=== PATIENT | male | born 1980 | race Caucasian/White ===

== ENCOUNTER 2016-12-19 09:23 | Emergency (ER) | payer SELFPAY ==
[~2016-12-19] VITALS: Ht 162.6 cm; Wt 96.7 kg
[~2016-12-19 09:23] MED LIST: ACET-1256 PO; OXYC1TAB3 PO
[2016-12-19 09:30] VITALS: BP 148/88; PULSE 61; TEMP 37.2; O2SAT 96; Ht 162.6 cm; Wt 96.7 kg
--- NOTE | 2016-12-19 09:59 | EMERGENCY ROOM VISIT NOTE ---
History Report prepared by Stefano: Clair Richardson Under the Supervision of: Koby GoodwinO. First contact with patient: 09:41 Chief Complaint: OTHER COMPLAINT Stated Complaint: SWOLLEN LIPS, HIGH FEVER History of Present Illness The patient is a 36 year old male who presents to the Emergency Room with complaints of persistent lip swelling that began this morning. He currently rates his discomfort as a 9/10 in severity. The patient states that over the weekend he had a fever of 104 degrees Fahrenheit. He states that this morning he woke up with edema to his lips. The patient states that he has had cold sores in the past, but denies anything like this. He denies any other rashes. The patient notes a sore throat. He denies any swelling to his lower extremities. The patient states that the area started out itchy. He states that he is a smoker, but denies any alcohol use. The patient denies any history of Herpes. Source of History: patient Onset: this mroning Position: lip Symptom Intensity: 9/10 Quality: other (swelling, itchy) Timing: other (persistent) Associated Symptoms: + fevers, + sorethroat, No rash Review of Systems See HPI for pertinent positives & negatives. A total of 10 systems reviewed and were otherwise negative. Past Medical & Surgical Medical Problems: (1) Diabetes (2) Diabetes (3) Tobacco Use Disorder Surgical Problems: (1) No history of previous surgery Family History FH: cancer FH: diabetes mellitus Social History Smoking Status: Current Every Day Smoker Alcohol Use: none Housing Status: lives with family Occupation Status: employed Current/Historical Medications Scheduled Mupirocin (Bactroban 2% Oint), 1 APPLN EXT BID Valacyclovir Hcl (Valtrex), 2 TAB PO BID Allergies Coded Allergies: No Known Allergies (Unverified , 12/19/16) Physical Exam Vital Signs Date Time Temp Pulse Resp B/P Pulse Ox O2 Delivery O2 Flow Rate FiO2 12/19/16 09:30 37.2 61 20 148/88 96 Room Air Physical Exam GENERAL: Patient is awake, alert, somewhat anxious appearing, overall comfortable. EYES: The conjunctivae are clear. The pupils are round and reactive. EARS, NOSE, MOUTH AND THROAT: Mucous membranes are moist. Significant perioral swelling with vesicular eruption noted in the perioral region, mostly in the upper lip. NECK: The neck is nontender and supple. RESPIRATORY: Normal respiratory effort is noted there is no evidence of wheezing rhonchi or rales CARDIOVASCULAR: Regular rate and rhythm noted there no murmurs rubs or gallops normal S1 normal S2 GASTROINTESTINAL: The abdomen is soft. Bowel sounds are present in all quadrants. Abdomen is nontender MUSCULOSKELETAL/EXTREMITIES: There is no evidence of gross deformity full range of motion is noted in the hips and shoulders SKIN: There is no obvious evidence of any rash. There are no petechiae, pallor or cyanosis noted. NEUROLOGIC: Patient is awake alert and oriented x3. Medical Decision & Procedures Laboratory Results Test 12/19/16 09:50 Laboratory results per my review. Medications Administered Medications (Trade) Dose Ordered Sig/Brook Route Start Time Stop Time Status Last Admin Dose Admin Valacyclovir HCl (Valtrex Tab) 1,000 mg NOW ONCE PO 12/19/16 10:00 12/19/16 10:01 DC 12/19/16 09:58 1,000 MG ED Course 0946: The patient was evaluated in room B5. A complete history and physical examination were performed. 1000: Ordered Valtrex Tab 1000 mg PO. 1016: I reevaluated the patient and he is resting comfortably. I discussed the exam findings with him and I discussed the treatment plan. He verbalized complete understanding and agreement. He is ready to go home. Medical Decision Differential diagnosis: Etiologies such as contact dermatitis, viral exanthem, urticaria, allergic reaction, Ardon-Ricardo syndrome, toxic epidermal necrolysis, erythema multiforme, cellulitis, scabies, HSV, varicella, zoster, eczema, staph scalded skin syndrome, fungal infection, as well as others were entertained. Nursing notes reviewed. The patient is a 36-year-old male who presented to the emergency department for an evaluation of her pain and rash and swelling. The patient had a history of cold sores in the past. His significant other presented to the emergency Department with him. Neither the patient or his significant other have any other lesions anywhere including on the genitals. The patient was treated with Valtrex in the emergency department. Cultures were obtained of the rash. It does appear to be consistent with herpes labialis. The patient was encouraged to continue all medications as prescribed. He was also encouraged to drink plenty clear liquids. He was also encouraged return to the emergency Department immediately if symptoms change worsen or the need arises otherwise he was encouraged to follow-up with his primary care physician and avoid handling any food. Impression Primary Impression: Herpes labialis Scribe Attestation The scribe's documentation has been prepared under my direction and personally reviewed by me in its entirety. I confirm that the note above accurately reflects all work, treatment, procedures, and medical decision making performed by me. Departure Information Dispostion Home / Self-Care Prescriptions Mupirocin (Bactroban 2% Oint) 66 Appln/22 Gm Oint 1 APPLN EXT BID, #30 GM Prov: Vince Singh, DO 12/19/16 Valacyclovir Hcl (VALTREX) 1 Gm Tab 2 TAB PO BID, #12 TAB Prov: Vince Singh, DO 12/19/16 Referrals No Doctor, Assigned (PCP) Forms HOME CARE DOCUMENTATION FORM, IMPORTANT VISIT INFORMATION, WORK / SCHOOL INSTRUCTIONS, Work Instructions Patient Instructions My [facility], Sores Cold Additional Instructions Call your family to schedule a follow-up appointment. Continue all medications as prescribed. Avoid any direct contact with food or preparing food. Wash your hands frequently.
[2016-12-19] MEDS ORDERED: BCTROWC EXT (10:02)
[2016-12-19] MEDS ORDERED: VALA1TAB31 PO (10:02)
[2016-12-21 14:38] LABS: HERPES SIMPLEX CULT SOURCE OTHER-PERIORAL; HERPES SIMPLEX VIRUS CULT ISOLATED (NOT ISOLATED)
--- NOTE | 2016-12-21 17:58 | Pharmacy Progress Note ---
ED Pharmacist Culture FollowUp Date of Service: Dec 21, 2016. Patient called earlier today requesting results of HSV testing - was still pending at that point. He provided different phone number for contact [phone]. Serology updated later today - perioral positive for HSV by [facility]. 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 Tried to call [facility] for additional information, but only was able to contact automated services and was unable to speak with a person. Called Stefano at above number. Notified of positive HSV result. Counseled to continue the Valtrex and to follow-up with outpatient provider. Stefano acknowledged understanding. Case discussed with Dr. Singh.
== END 2016-12-19 10:26 | disposition home or self-care (01) ==
LOC: C.EDB 09:24
DX: B00.1 Herpesviral vesicular dermatitis (principal); F17.210 Nicotine dependence, cigarettes, uncomplicated; E11.9 Type 2 diabetes mellitus without complications; Z83.3 Family history of diabetes mellitus

== ENCOUNTER 2017-07-14 08:00 | Emergency (ER) | payer SELFPAY ==
[~2017-07-14] VITALS: Ht 162.6 cm; Wt 94.4 kg
[~2017-07-14 08:00] MED LIST changes: -ACET-1256 PO; +BCTROWC EXT; -OXYC1TAB3 PO; +VALA1TAB31 PO
[2017-07-14 08:04] VITALS: BP 138/86; PULSE 93; TEMP 36.9; O2SAT 97; Ht 162.6 cm; Wt 94.4 kg
--- NOTE | 2017-07-14 08:21 | EMERGENCY ROOM VISIT NOTE ---
History Report prepared by Stefano: Joe Novak Under the Supervision of: Dr. Cory Song M.D. First contact with patient: 08:11 Chief Complaint: OTHER COMPLAINT Stated Complaint: POSSIBLE PINK EYE, ALL KIDS AT HOME HAVE IT History of Present Illness The patient is a 37 year old male who presents to the Emergency Room with complaints of possible pink eye in his left eye that began this morning. He states that his eye is not painful, but it is itchy. When he woke up this morning, he states that his left eye lids were stuck together. He states that 3 of his kids at home have pink eye, and he thinks that that is what he is experiencing. He does not wear contacts or glasses. He denies any fever, cough, rhinorrhea, sore throat, or any other abnormal symptoms. His vaccinations are up to date. He denies any past medical problems. He denies any trauma or possibility for foreign body. Source of History: patient Onset: this morning Position: eye (left) Symptom Intensity: moderate Quality: other (Itching) Timing: constant Associated Symptoms: No fevers, No sorethroat, No cough Note: He denies any other abnormal complaints. Review of Systems See HPI for pertinent positives & negatives. A total of 10 systems reviewed and were otherwise negative. Past Medical & Surgical Medical Problems: (1) Diabetes (2) Diabetes (3) Tobacco Use Disorder Surgical Problems: (1) No history of previous surgery Old medical records were reviewed. Nurse's notes were reviewed and I agree with. Denies significant past medical history Family History FH: cancer FH: diabetes mellitus Social History Smoking Status: Current Every Day Smoker Alcohol Use: none Drug Use: none Marital Status: Housing Status: lives with family Occupation Status: employed Current/Historical Medications No Active Prescriptions or Reported Meds Allergies Coded Allergies: No Known Allergies (Unverified , 07/14/17) Physical Exam Vital Signs Date Time Temp Pulse Resp B/P (MAP) Pulse Ox O2 Delivery O2 Flow Rate FiO2 07/14/17 08:04 36.9 93 18 138/86 97 Room Air Physical Exam General: Non ill appearing, young male, well developed well nourished in no acute distress, breathing comfortably on room air. Normal speech HEENT: Normal cephalic atraumatic. Left eye is mildly red. Clear discharge. Minimal swelling of left lids. No proptosis. Stained with fluorescein. No lesions to the cornea appreciated. Pupils are equal round and reactive to light. Extraocular movements are intact. Oropharynx is pink with moist mucous membranes. No swelling of the mouth lips or tongue. Neck: Supple with a midline trachea. No meningeal signs or stiffness, no JVD or bruits. No Stridor. Chest: Clear to auscultation bilaterally. No wheezes or rhonchi. No increased work of breathing. Heart: regular rate and rhythm. Abdomen: Soft nontender, nondistended without rebound guarding or rigidity. Extremities: No cyanosis clubbing or edema. No calf tenderness or assymetry Spine/Back. Non tender to palpation. No CVA tenderness Skin: Good turgor without rashes. Neurologic exam: Cranial nerves two through 12 are intact. Motor and sensation are intact and symmetrical throughout. Medical Decision & Procedures Medications Administered Medications (Trade) Dose Ordered Sig/Brook Route Start Time Stop Time Status Last Admin Dose Admin Ciprofloxacin HCl (Ciloxan 0.3% Op Oint) 1 appln NOW ONCE OP 07/14/17 08:30 07/14/17 08:31 DC 07/14/17 08:26 1 APPLN ED Course 0811: Past medical records reviewed. The patient was evaluated in room B12B, and a complete history and physical examination were performed. 0830: Ordered Ciprofloxacin HCl 1 appln OP 0835: Upon reevaluation, the patient is resting. I discussed the results and treatment plan with him. He verbalized agreement of the treatment plan. The patient was discharged home. Medical Decision Differentials include, but are not limited to; conjunctivitis, foreign body, and infection. This patient comes in as described above. He has pink eye. His kids also have this. He is asymptomatic otherwise. His conjunctiva is mildly injected he has some clear drainage. He has normal-appearing pupil. I stained his eye with fluorescein and there is no significant coronary lesions or any dendritic lesions. He has 20/20 vision bilaterally. I will put him on Ciloxan eyedrops 1 drop 3 times a day. He is to use warm compresses ensure good handwashing return if: Worsening of symptoms, change in vision, increasing pain or problems , any new problems or concerns. The patient was happy with the plan and he was discharged to home. He should follow-up with her doctor this week for recheck. Medication Reconcilliation Current Medication List: was personally reviewed by me Blood Pressure Screening Patient's blood pressure: Normal blood pressure Blood pressure disposition: Did not require urgent referral Impression Primary Impression: Conjunctivitis, left eye Scribe Attestation The scribe's documentation has been prepared under my direction and personally reviewed by me in its entirety. I confirm that the note above accurately reflects all work, treatment, procedures, and medical decision making performed by me. Departure Information Dispostion Home / Self-Care Prescriptions No Active Prescriptions or Reported Meds Referrals No Doctor, Assigned (PCP) Forms HOME CARE DOCUMENTATION FORM, IMPORTANT VISIT INFORMATION, WORK / SCHOOL INSTRUCTIONS Patient Instructions My [facility] Additional Instructions Warm compresses. Use Ciloxan 1 drop 3 times a day to left eye Return if: Worsening of symptoms, increasing pain or swelling, change in vision , failure of symptoms resolve in 1-2 days Follow up with your doctor Sunday for recheck if not 100% better
[2017-07-14] MEDS ORDERED: CIPROFLOXACIN HCL 3.5 GM TUBE OP ONE (08:30)
== END 2017-07-14 08:37 | disposition home or self-care (01) ==
LOC: C.EDB 08:01
DX: H10.9 Unspecified conjunctivitis (principal); E11.9 Type 2 diabetes mellitus without complications; F17.210 Nicotine dependence, cigarettes, uncomplicated; Z80.9 Family history of malignant neoplasm, unspecified; Z83.3 Family history of diabetes mellitus

== ENCOUNTER 2017-09-22 09:34 | Emergency (ER) | payer SELFPAY ==
[~2017-09-22] VITALS: Ht 165.1 cm; Wt 95.1 kg
[2017-09-22 09:39] VITALS: TEMP 37; Ht 165.1 cm; Wt 95.1 kg
[2017-09-22] MEDS ORDERED: GUAI1TAB69 PO (09:47)
--- NOTE | 2017-09-22 09:54 | EMERGENCY ROOM VISIT NOTE ---
History Report prepared by Stefaon: Salomón Freeman Under the Supervision of: Dr. Cory Song M.D. First contact with patient: 09:45 Chief Complaint: CONGESTION Stated Complaint: BLISTERS,COUGH,COLD,SINUS INFECTION Nursing Triage Summary: fever for a few days with blisters all over his lips and sinus pressure, pain 8/10. Pt also c/o yellow productive cough. History of Present Illness The patient is a 37 year old male who presents to the Emergency Room with complaints of constant flu like symptoms beginning a week ago. The patient states that his symptoms have been constant for the past week and he complains of a fever, productive cough, runny nose, body aches, and mouth blisters. He notes that his fever reached a high of 102.7 two days ago and that he produces a greenish-yellow substance when he coughs. He reports that the blisters in his mouth have started very quickly. He denies any nausea, vomiting, and abdominal pain. The patient states that his entire family has recently been sick. He notes that he is up to date on his vaccinations but has not received a flu shot this year. Source of History: patient Onset: a week ago Position: other (global) Quality: other (fly like symptoms) Timing: constant Associated Symptoms: + fevers (102.7), + cough (greenish-yellow productive) , No nausea, No vomiting, No abdominal pain Note: He also complains of a runny nose, body aches, and mouth blisters. Review of Systems See HPI for pertinent positives & negatives. A total of 10 systems reviewed and were otherwise negative. Past Medical & Surgical Medical Problems: (1) Diabetes (2) Diabetes (3) Tobacco Use Disorder Surgical Problems: (1) No history of previous surgery Old medical records were reviewed. Nurse's notes were reviewed and I agree with. History of HSV Family History FH: cancer FH: diabetes mellitus Social History Smoking Status: Current Every Day Smoker Alcohol Use: none Drug Use: none Marital Status: Housing Status: lives with family Occupation Status: employed Current/Historical Medications Scheduled Azithromycin (Zithromax Z-Mode), 0 PO UD Mupirocin (Bactroban 2% Oint), 1 APPLN EXT BID Valacyclovir Hcl (Valtrex), 1 TAB PO BID Scheduled PRN Guaifenesin (Mucinex Maximum Strength), 1 TAB PO BID PRN for congestion Allergies Coded Allergies: No Known Allergies (Unverified , 09/22/17) Physical Exam Vital Signs Date Time Temp Pulse Resp B/P (MAP) Pulse Ox O2 Delivery O2 Flow Rate FiO2 09/22/17 11:15 92 16 135/87 100 09/22/17 09:39 97 Room Air 09/22/17 09:39 37.0 104 18 113/72 96 Room Air Physical Exam General: Non-ill appearing 37 year old male in no acute distress. Occasional dry cough. HEENT: Normal cephalic atraumatic. Pupils are equal round and reactive to light. Extraocular movements are intact. Oropharynx is pink with moist mucous membranes. No swelling of the mouth lips or tongue. Normal tympanic membranes. Facial lesions that are red, involved in the upper lip consistent with previous fever blisters, no cellulitis. Neck: Supple with a midline trachea. No meningeal signs or stiffness, no JVD or bruits. No Stridor. Chest: Clear to auscultation bilaterally. No wheezes or rhonchi. No increased work of breathing. Heart: regular rate and rhythm. Abdomen: Soft nontender, nondistended without rebound guarding or rigidity. Extremities: No cyanosis clubbing or edema. No calf tenderness or assymetry Spine/Back. Non tender to palpation. No CVA tenderness Skin: Good turgor without rashes. Neurologic exam: Cranial nerves two through 12 are intact. Motor and sensation are intact and symmetrical throughout. Medical Decision & Procedures ER Provider Diagnostic Interpretation: Radiology results as stated below per my review and radiologist interpretation: CHEST ONE VIEW PORTABLE FINDINGS: The lungs are clear. Cardiac silhouette is normal in size. No pleural effusions. No pneumothorax. IMPRESSION: No acute process. Electronically signed by: Steve Covarrubias M.D. 09/22/2017 10:32 AM Medications Administered Medications (Trade) Dose Ordered Sig/Brook Route Start Time Stop Time Status Last Admin Dose Admin Valacyclovir HCl (Valtrex Tab) 1,000 mg NOW ONCE PO 09/22/17 10:30 09/22/17 10:31 DC 09/22/17 10:32 1,000 MG Azithromycin (Zithromax Tab) 500 mg STK-MED ONCE .ROUTE 09/22/17 11:12 09/22/17 11:13 DC 09/22/17 11:16 500 MG ED Course 0947: Past medical records reviewed. The patient was evaluated in room A11, and a complete history and physical examination were performed. 1030: Valtrex Tab 1000mg PO 1105: Upon reevaluation, the patient is stable. I discussed the results and treatment plan with him. He verbalized agreement of the treatment plan. The patient was discharged home. Medical Decision Differential diagnoses include: bronchitis, herpetic labialis, pneumonia, and cellulitis. This patient comes in as described above he's a cough and URI type symptoms for about a week now family members also been sick. He's had developed the last 24 hours of fever blisters of his lip and face he's had these before but they're much more severe he wanted to catch them early. He has had no fever for 24 hours she looks well on exam. There is no swelling of the posterior oropharynx. He's not hypoxemic. X-ray was obtained and shows no pneumonia. I will start him azithromycin Z-Mode as he's had ongoing URI-type symptoms for about a week for his bronchitis also on Valtrex for his HSV infection and he can also apply some Bactroban ointment for any potential secondary infection. The patient follows doctor Sunday for recheck and was given these medications as well as prescriptions and will be discharged home his encouraged return if any new problems concerns. Blood Pressure Screening Patient's blood pressure: Normal blood pressure Blood pressure disposition: Did not require urgent referral Impression Primary Impression: Bronchitis Additional Impression: Herpes labialis Scribe Attestation The scribe's documentation has been prepared under my direction and personally reviewed by me in its entirety. I confirm that the note above accurately reflects all work, treatment, procedures, and medical decision making performed by me. Departure Information Dispostion Home / Self-Care Prescriptions Mupirocin (Bactroban 2% Oint) 66 Appln/22 Gm Oint 1 APPLN EXT BID for 7 Days, #1 TUBE Prov: Cory Song M.D. 09/22/17 Valacyclovir Hcl (VALTREX) 1 Gm Tab 1 TAB PO BID for 7 Days, #14 TAB Prov: Cory Song M.D. 09/22/17 Azithromycin (ZITHROMAX Z-MODE) 250 Mg Tab 0 PO UD, #1 PKT Prov: Cory Song M.D. 09/22/17 Referrals No Doctor, Assigned (PCP) Forms HOME CARE DOCUMENTATION FORM, IMPORTANT VISIT INFORMATION Patient Instructions My [facility] Additional Instructions Rest. Drink plenty of fluids. Use Valtrex 1000 mg twice a day for 7 days Use mupirocin 2% cream twice a day for 7 days Use azithromycin Z-Mode as directed antibiotic Return if: Worsening of symptoms, shortness of breath, fever or chills, any new problems or concerns Follow-up with your doctor early this week for recheck if not 100% better. Return to the emergency department over the weekend if symptoms worsen Problem Qualifiers
[2017-09-22] MEDS ORDERED: BCTROWC EXT (10:29)
[2017-09-22] MEDS ORDERED: VALA1TAB31 PO (10:29)
[2017-09-22] MEDS ORDERED: AZITTAB PO (10:29)
--- NOTE | 2017-09-22 10:33 | DIAGNOSTIC IMAGING REPORT ---
CHEST ONE VIEW PORTABLE HISTORY: Atypical CHEST PAIN COMPARISON: Chest 11/19/2012. FINDINGS: The lungs are clear. Cardiac silhouette is normal in size. No pleural effusions. No pneumothorax. IMPRESSION: No acute process. Electronically signed by: Steve Covarrubias M.D. 09/22/2017 10:32 AM Dictated Date/Time: 09/22/2017 10:30 AM
[2017-09-22] MEDS ORDERED: AZITHROMYCIN 250 MG TAB PO ONE (11:00)
[2017-09-22] MEDS ORDERED: AZITHROMYCIN 250 MG TAB ONE (11:12)
[2017-09-22 11:15] VITALS: BP 135/87; PULSE 92; O2SAT 100
== END 2017-09-22 11:17 | disposition home or self-care (01) ==
LOC: C.EDB 09:36 → C.EDA 11:17
DX: J40 Bronchitis, not specified as acute or chronic (principal); B00.1 Herpesviral vesicular dermatitis; E11.9 Type 2 diabetes mellitus without complications; F17.200 Nicotine dependence, unspecified, uncomplicated; Z83.3 Family history of diabetes mellitus

== ENCOUNTER 2017-11-24 21:03 | Emergency (ER) | payer SELFPAY ==
[~2017-11-24] VITALS: Ht 162.6 cm; Wt 97.1 kg
[~2017-11-24 21:03] MED LIST changes: -BCTROWC EXT; +GUAI1TAB69 PO; -VALA1TAB31 PO
[2017-11-24 21:05] VITALS: TEMP 37.1; Ht 162.6 cm; Wt 97.1 kg
[2017-11-24] MEDS ORDERED: ACETAMINOPHEN 500 MG TAB PO STA (21:21)
[2017-11-24] MEDS ORDERED: ALBUT/IPRATROP 3MG/0.5MG NEB 3 ML VIAL INH STA (21:21)
[2017-11-24] MEDS ORDERED: ONDANSETRON INJ 2 MG/ML 2 ML VIAL IV STA (21:21)
[2017-11-24] MEDS ORDERED: SODIUM CHLORIDE 0.9% 1000ML 1,000 ML IV STA (21:21)
[2017-11-24] MEDS ORDERED: DEXT1LIQ36 PO (21:36)
[2017-11-24] MEDS ORDERED: PHEN-652 PO (21:36)
--- NOTE | 2017-11-24 21:51 | EMERGENCY ROOM VISIT NOTE ---
History Report prepared by Stefano: Raul Yung Under the Supervision of: Dr. Jose Heck M.D. First contact with patient: 21:08 Chief Complaint: FLU LIKE SX Stated Complaint: NAUSEA,CHILLS,SORETHROAT,COUGHING History of Present Illness The patient is a 37 year old male who presents to the Emergency Room with complaints of persistent flu-like symptoms since six days ago. He reports nausea , fevers, lightheadedness, dizzy, cough, and sweating. He notes his symptoms have worsened over the last three days. He reports back pain that worsens with deep breathing. He developed a sore throat over the last eight hours. He notes vomiting. He reports a loss of appetite due to difficulty swallowing, though he is able to drink fluids. He reports a fever of 104 in the first couple of days, though it dropped when he took Mucinex. He reports back pain that worsens with deep breathing. He denies any asthma or history of breathing difficulties. He denies any recent surgeries or other underlying medical problems. Pt denies LOC, headache, ear pain, chills, visual changes, neck pain, chest pain, abdominal pain, melena, hematochezia, urinary symptoms, numbness, weakness, rash, or other complaints. He is a current smoker. Source of History: patient Onset: six days ago Position: other (global) Quality: other (flu-like symptoms) Timing: other (persistent) Associated Symptoms: + fevers, + diaphoresis (sweating), + sorethroat, + cough, + nausea, + vomiting, + back pain Note: He reports dizziness, lightheadedness, difficulty swallowing, and loss of appetite. Review of Systems See HPI for pertinent positives and negatives. A total of ten systems were reviewed and were otherwise negative. Past Medical & Surgical Medical Problems: (1) Abscess of skin (2) Back strain (3) Bronchitis (4) Diabetes (5) Diabetes (6) Herpes labialis (7) Tobacco Use Disorder (8) Work related injury Surgical Problems: (1) No history of previous surgery Family History FH: cancer FH: diabetes mellitus Social History Smoking Status: Current Every Day Smoker Alcohol Use: none Drug Use: none Marital Status: Housing Status: lives with family Occupation Status: employed Current/Historical Medications Scheduled Azithromycin (Zithromax), 250 MG PO DAILY Scheduled PRN Cdhiyfmedfbepbkj-Ggqnvdjqqo-Is (Vicks Nyquil Cold & Flu), 1 DOSE PO Q4 PRN for FLU SYMPTOMS Phenylephrine W/ Dm-GG (Mucinex Congestion & Coug 2.5-5-100 mg/5Ml), 1 DOSE PO Q12 PRN for FLU SYMPTOMS Allergies Coded Allergies: No Known Allergies (Unverified , 09/22/17) Physical Exam Vital Signs Date Time Temp Pulse Resp B/P (MAP) Pulse Ox O2 Delivery O2 Flow Rate FiO2 11/24/17 23:36 103 16 143/78 96 Room Air 11/24/17 22:18 99 Room Air 11/24/17 21:05 37.1 104 20 136/81 97 Room Air Physical Exam GENERAL: Awake, alert, mildly ill and uncomfortable-appearing, no distress. Moderate cough. HEAD: Normocephalic, atraumatic. No edema. EYES: Normal conjunctiva. Sclera non-icteric. EARS: Right TM normal. Left TM normal. NOSE: Mild congestion. OROPHARYNX: Lips, tongue, and mucosa unremarkable. No erythema or exudate. NECK: Supple. No nuchal rigidity. FROM. No adenopathy. Negative jolt accentuation test. RESPIRATORY: CTA bilaterally. No wheezes rales or rhonchi. CARDIAC: Borderline tachycardic rate. Normal rhythm. No murmurs. No rubs. GI: Soft, non distended. No tenderness to palpation. MUSCULOSKELETAL: Lateral rib tenderness on both sides. NEURO: Normal sensorium. Normal speech. SKIN: No rash or jaundice noted. Medical Decision & Procedures ER Provider Diagnostic Interpretation: Radiology results as stated below per my review and radiologist interpretation: CHEST ONE VIEW PORTABLE CLINICAL HISTORY: EVALUATE RESPIRATORY DISTRESS.DYSPNEA COMPARISON STUDY: Chest radiograph September 22, 2017. FINDINGS: Lung volumes are normal. No pneumothorax or pleural effusion is noted. Cardiac size is normal. Mediastinal contours are normal. There is mild reticulonodular interstitial thickening. No consolidation is identified. There is no cavitation. IMPRESSION: Mild reticulonodular interstitial thickening. Although this may reflect normal pulmonary vessels, an infectious process or interstitial lung disease could have this imaging appearance. Electronically signed by: Rakesh Lorenz M.D. 11/24/2017 10:20 PM Dictated Date/Time: 11/24/2017 10:19 PM Laboratory Results 11/24/17 21:44 Red Blood Count 4.70, Mean Corpuscular Volume 85.5, Mean Corpuscular Hemoglobin 30.4, Mean Corpuscular Hemoglobin Concent 35.6, Mean Platelet Volume 8.8, Neutrophils (%) (Auto) 57.8, Lymphocytes (%) (Auto) 27.9, Monocytes (%) (Auto) 11.6, Eosinophils (%) (Auto) 2.1, Basophils (%) (Auto) 0.3, Neutrophils # (Auto ) 6.20, Lymphocytes # (Auto) 2.99, Monocytes # (Auto) 1.24, Eosinophils # (Auto ) 0.23, Basophils # (Auto) 0.03 11/24/17 21:44 Test 11/24/17 21:15 11/24/17 21:44 Influenza Type A Antigen Neg for Influ A (NEG) Influenza Type B Antigen Neg for Influ B (NEG) White Blood Count 10.72 K/uL (4.8-10.8) Red Blood Count 4.70 M/uL (4.7-6.1) Hemoglobin 14.3 g/dL (14.0-18.0) Hematocrit 40.2 % (42-52) Mean Corpuscular Volume 85.5 fL (80-100) Mean Corpuscular Hemoglobin 30.4 pg (25-34) Mean Corpuscular Hemoglobin Concent 35.6 g/dl (32-36) Platelet Count 238 K/uL (130-400) Mean Platelet Volume 8.8 fL (7.4-10.4) Neutrophils (%) (Auto) 57.8 % Lymphocytes (%) (Auto) 27.9 % Monocytes (%) (Auto) 11.6 % Eosinophils (%) (Auto) 2.1 % Basophils (%) (Auto) 0.3 % Neutrophils # (Auto) 6.20 K/uL (1.4-6.5) Lymphocytes # (Auto) 2.99 K/uL (1.2-3.4) Monocytes # (Auto) 1.24 K/uL (0.11-0.59) Eosinophils # (Auto) 0.23 K/uL (0-0.5) Basophils # (Auto) 0.03 K/uL (0-0.2) RDW Standard Deviation 43.4 fL (36.4-46.3) RDW Coefficient of Variation 13.9 % (11.5-14.5) Immature Granulocyte % (Auto) 0.3 % Immature Granulocyte # (Auto) 0.03 K/uL (0.00-0.02) Anion Gap 8.0 mmol/L (3-11) Est Creatinine Clear Calc Drug Dose 87.1 ml/min Estimated GFR () 87.5 Estimated GFR (Non- 75.5 BUN/Creatinine Ratio 13.5 (10-20) Calcium Level 8.2 mg/dl (8.5-10.1) Total Bilirubin 0.3 mg/dl (0.2-1) Aspartate Amino Transf (AST/SGOT) 19 U/L (15-37) Alanine Aminotransferase (ALT/SGPT) 35 U/L (12-78) Alkaline Phosphatase 120 U/L (45-117) Total Protein 7.2 gm/dl (6.4-8.2) Albumin 3.7 gm/dl (3.4-5.0) Globulin 3.5 gm/dl (2.5-4.0) Albumin/Globulin Ratio 1.0 (0.9-2) Laboratory results reviewed by me Medications Administered Medications (Trade) Dose Ordered Sig/Brook Route Start Time Stop Time Status Last Admin Dose Admin Acetaminophen (Tylenol Tab) 1,000 mg NOW STAT PO 11/24/17 21:21 11/24/17 21:24 DC 11/24/17 22:01 1,000 MG Albuterol/ Ipratropium (Duoneb) 3 ml NOW STAT INH 11/24/17 21:21 11/24/17 21:24 DC 11/24/17 22:05 3 ML Sodium Chloride 1,000 ml @ 999 mls/hr Q1H1M STAT IV 11/24/17 21:21 11/24/17 22:21 DC 11/24/17 22:05 999 MLS/HR Ondansetron HCl (Zofran Inj) 4 mg NOW STAT IV 11/24/17 21:21 11/24/17 21:24 DC 11/24/17 22:01 4 MG Azithromycin (Zithromax Tab) 500 mg NOW STAT PO 11/24/17 23:01 11/24/17 23:03 DC 11/24/17 23:16 500 MG Albuterol (Ventolin Hfa Inhaler) 2 puffs NOW ONCE INH 11/24/17 23:15 11/24/17 23:16 DC 11/24/17 23:17 2 PUFFS Hydrocodone Bit/ Homatropine Methylb (Hycodan Elix Homepack 5/1.5MG/ 5ML) 1 homepack UD ONCE PO 11/24/17 23:15 11/24/17 23:16 DC 11/24/17 23:17 1 HOMEPACK ED Course 2120: The patient was evaluated in room B9. A complete history and physical exam was performed. 2120: Ordered Zofran 4 mg IV, Sodium Chloride 1,000 ml @ 999 mls/hr IV, DuoNeb 3 ml INH, and Tylenol 1,000 mg PO 2256: I reassessed the patient at this time. He is feeling better and resting comfortably. I discussed the results and treatment plan with the patient. I answered all pertaining questions that he had. He expressed understanding and verbalized agreement. The patient will be discharged home. 2300: Ordered Azithromycin 500 mg PO 2307: The patient was given a list of PCPs and a reference for the [facility]. 5: Ordered Hydrocodone Bit/Homatropine Methylb 1 homepack PO and Albuterol 2 puffs INH Medical Decision Triage Nursing notes reviewed. The patient's presentation and history were concerning for flu like symptoms. Etiologies such as viral syndrome, otitis, pharyngitis, pneumonia, urinary tract infection, sepsis, bacteremia, meningitis, as well as others were entertained. The patient was evaluated. He has had worsening flulike symptoms. He noted rib pain with coughing and breathing. He had a sore throat. He was hydrated. He was given Zofran and Tylenol. Chest x-ray and blood work testing performed. The patient's blood work was unremarkable. Flu testing negative. He does have a pneumonitis on chest x-ray. This would explain his significant cough. He was given Zithromax and a Hycodan home pack. Albuterol MDI was also given. The patient will be prescribed Zithromax as an outpatient. Conservative management was discussed. He had been given information for primary care follow -up.I gave my usual and customary discussion regarding this issue. By the evaluation outlined above other emergent etiologies such as those listed in the differential, as well as others, were deemed relatively unlikely. The patient was educated about the findings as listed above. All questions were answered and the patient was pleased with the treatment. Return instructions were outlined and the patient was discharged in stable condition. The patient was referred to primary care for follow-up for a recheck of the current condition. Medication Reconcilliation Current Medication List: was personally reviewed by me Blood Pressure Screening Patient's blood pressure: Elevated blood pressure Blood pressure disposition: Referred to PCP Impression Primary Impression: Pneumonitis Additional Impression: Flu-like symptoms Scribe Attestation The scribe's documentation has been prepared under my direction and personally reviewed by me in its entirety. I confirm that the note above accurately reflects all work, treatment, procedures, and medical decision making performed by me. Departure Information Dispostion Home / Self-Care Prescriptions Azithromycin (Zithromax) 250 Mg Tab 250 MG PO DAILY, #4 TAB Prov: Jose Heck MD 11/24/17 Referrals No Doctor, Assigned (PCP) Forms HOME CARE DOCUMENTATION FORM, IMPORTANT VISIT INFORMATION, Work Instructions Patient Instructions My [facility] Additional Instructions Azithromycin(Zithromax) 250mg: Take one a day for 4 additional days. All antibiotics can cause diarrhea. If this occurs and you feel worse or it does not resolve in 1-2 days follow up with your doctor or return to the Emergency Department as this could be signs of serious underlying problems. Any medication can cause an allergic reaction, stop the pills immediately and return to the ER for rash, hives, breathing difficulties, or swelling. Albuterol Inhaler: Take 2 puffs four times daily for seven days, then as needed. Acetaminophen(Tylenol) may be used for fever or pain. Use 1000mg every six hours as needed. Avoid using more than 4000mg in a 24 hour period. AND/OR Ibuprofen(Motrin, Advil) may be used for fever or pain. Use 600mg every six hours as needed. Take with food. Avoid using more than 2400mg in a 24 hour period. Do not use 2400mg per day for more than three consecutive days without physician direction. Prolonged inappropriate use can lead to stomach upset or ulcers. Hycodan cough syrup: use one teaspoon every six hours only as needed for severe cough. It is best for use at night since it will cause sedation. This is a narcotic medication. Avoid alcohol, operating machinery or dangerous equipment, working on ladders or roofs, DRIVING, or situations where being under the influence may be dangerous. It is recommended to use an over-the- counter stool softener such as Colace, 100mg twice daily while taking this medication to avoid constipation. Controlling your fever with Tylenol and Ibuprofen as above will make you feel better. Rest and drink plenty of fluids. Avoid strenuous activity until your symptoms resolve and your breathing returns to normal. Return to the ER for chest pain, difficulty breathing, persistent fevers, vomiting, worsening of your condition, or as needed. Follow up with a primary physician next week for regular care and for a recheck of the current condition. Problem Qualifiers
[2017-11-24 21:55] LABS: HEMATOCRIT 40.2 % (42-52); HEMOGLOBIN 14.3 g/dL (14.0-18.0); MEAN CELL VOLUME 85.5 fL (80-100); MEAN CORPUSCULAR HEMOGLOBIN 30.4 pg (25-34); MEAN CORPUSCULAR HGB CONC 35.6 g/dl (32-36); MEAN PLATELET VOLUME 8.8 fL (7.4-10.4); PLATELET COUNT 238 K/uL (130-400); RED CELL DISTRIBUTION WIDTH CV 13.9 % (11.5-14.5); RED CELL DISTRIBUTION WIDTH SD 43.4 fL (36.4-46.3); WHITE BLOOD COUNT 10.72 K/uL (4.8-10.8)
[2017-11-24 22:09] LABS: ALBUMIN 3.7 gm/dl (3.4-5.0); CALCIUM 8.2 mg/dl (8.5-10.1); CREATININE 1.21 mg/dl (0.60-1.40); POTASSIUM 3.7 mmol/L (3.5-5.1)
[2017-11-24 22:12] LABS: TOTAL PROTEIN 7.2 gm/dl (6.4-8.2)
[2017-11-24 22:16] LABS: BASO % 0.3 %; BASO ABS # 0.03 K/uL (0-0.2); EOS % 2.1 %; EOS ABS # 0.23 K/uL (0-0.5); IG# 0.03 K/uL (0.00-0.02); LYMPH % 27.9 %; LYMPH ABS # 2.99 K/uL (1.2-3.4); MONO % 11.6 %; MONO ABS # 1.24 K/uL (0.11-0.59); NEUT % 57.8 %
[2017-11-24 22:18] VITALS: O2SAT 99
--- NOTE | 2017-11-24 22:21 | DIAGNOSTIC IMAGING REPORT ---
CHEST ONE VIEW PORTABLE CLINICAL HISTORY: EVALUATE RESPIRATORY DISTRESS.DYSPNEA COMPARISON STUDY: Chest radiograph September 22, 2017. FINDINGS: Lung volumes are normal. No pneumothorax or pleural effusion is noted. Cardiac size is normal. Mediastinal contours are normal. There is mild reticulonodular interstitial thickening. No consolidation is identified. There is no cavitation. IMPRESSION: Mild reticulonodular interstitial thickening. Although this may reflect normal pulmonary vessels, an infectious process or interstitial lung disease could have this imaging appearance. Electronically signed by: Rakesh Lorenz M.D. 11/24/2017 10:20 PM Dictated Date/Time: 11/24/2017 10:19 PM
[2017-11-24 22:22] LABS: INFLUENZA B ANTIGEN Neg for Influ B (NEG)
[2017-11-24] MEDS ORDERED: AZITHROMYCIN 250 MG TAB PO STA (23:01)
[2017-11-24] MEDS ORDERED: ALBUTEROL HFA 8 GM INHALER INH ONE (23:15)
[2017-11-24] MEDS ORDERED: HYCODAN 60ML BOTTLE HOMEPACK PO ONE (23:15)
[2017-11-24] MEDS ORDERED: AZIT250T PO (23:32)
[2017-11-24 23:36] VITALS: BP 143/78; PULSE 103; O2SAT 96
== END 2017-11-24 23:41 | disposition home or self-care (01) ==
LOC: C.EDB 21:04
DX: J18.9 Pneumonia, unspecified organism (principal); R11.2 Nausea with vomiting, unspecified; M54.9 Dorsalgia, unspecified; E11.9 Type 2 diabetes mellitus without complications; F17.200 Nicotine dependence, unspecified, uncomplicated; Z83.3 Family history of diabetes mellitus